=== PATIENT | male | born 1935 | race Caucasian/White ===

== ENCOUNTER 2019-11-20 06:00 | Outpatient (RCR) | payer OTHER, SELFPAY | END 2019-12-19 23:59 | disposition home or self-care (01) | LOC: TPT 06:00 | PROVIDERS: PCP Emergency Medicine Emergency Medical Services; Referring Provider Specialist; Visit Provider Specialist | DX: M54.32 Sciatica, left side (principal); M54.31 Sciatica, right side; R26.81 Unsteadiness on feet | CPT/HCPCS: 97110; 97161 ==

== ENCOUNTER → 2019-12-14 11:31 | Outpatient (BNVA) | payer OTHER, SELFPAY | PROVIDERS: Family Provider Emergency Medicine Emergency Medical Services; PCP Emergency Medicine Emergency Medical Services; Referring Provider Emergency Medicine Emergency Medical Services; Visit Provider Specialist | DX: M25.552 Pain in left hip (principal); M25.551 Pain in right hip | CPT/HCPCS: 73522; 73523 ==

== ENCOUNTER 2019-12-20 06:00 | Outpatient (RCR) | payer OTHER, SELFPAY | END 2020-01-03 23:00 | disposition home or self-care (01) | LOC: SPT 06:00 | PROVIDERS: PCP Emergency Medicine Emergency Medical Services; Referring Provider Specialist; Visit Provider Specialist | DX: M53.3 Sacrococcygeal disorders, not elsewhere classified (principal); R26.81 Unsteadiness on feet | CPT/HCPCS: 97110 ==

== ENCOUNTER → 2020-04-24 11:31 | Outpatient (BNVA) | payer OTHER, SELFPAY | PROVIDERS: PCP Emergency Medicine Emergency Medical Services; Referring Provider Emergency Medicine Emergency Medical Services; Visit Provider Podiatrist Foot & Ankle Surgery | DX: M25.571 Pain in right ankle and joints of right foot (principal); M25.572 Pain in left ankle and joints of left foot | CPT/HCPCS: 73610 ==

== ENCOUNTER 2020-05-01 06:00 | Outpatient (RCR) | payer OTHER, SELFPAY | END 2020-05-20 23:59 | disposition home or self-care (01) | LOC: TPT 06:00 | PROVIDERS: PCP Emergency Medicine Emergency Medical Services; Referring Provider Podiatrist Foot & Ankle Surgery; Visit Provider Podiatrist Foot & Ankle Surgery | DX: M67.971 Unspecified disorder of synovium and tendon, right ankle and foot (principal); M67.972 Unspecified disorder of synovium and tendon, left ankle and foot | CPT/HCPCS: 97110; 97161 ==

== ENCOUNTER 2020-05-21 06:00 | Outpatient (RCR) | payer OTHER, SELFPAY | END 2020-05-29 23:00 | disposition home or self-care (01) | LOC: TPT 06:00 | PROVIDERS: PCP Emergency Medicine Emergency Medical Services; Referring Provider Podiatrist Foot & Ankle Surgery; Visit Provider Podiatrist Foot & Ankle Surgery | DX: M76.62 Achilles tendinitis, left leg (principal); M76.61 Achilles tendinitis, right leg; G89.29 Other chronic pain | CPT/HCPCS: 97110 ==

== ENCOUNTER 2020-06-17 09:24 | Outpatient (CLI) | payer OTHER, SELFPAY ==
--- NOTE | 2020-06-17 09:31 | XR_ITS ---
WS: [id number] Exam: XR KUB [id number] Date/Time of Exam: 06/17/2020 9:31 AM Reason For Exam: RENAL STONE Comparison 05/09/2019. No sign of bowel obstruction or free air. Mild ileus. Organ margins are obscured. Postoperative lujan es in the left pelvic region. Bony structures are intact. 2 small right abdominal calcifications are noted measuring 7 mm and 4 mm respectively. These might represent renal calculi. Vascular calcificati ons also noted in the abdomen. XR/XR KUB [id number] IMPRESSION: 1. No acute abdominal finding. Mild ileus. 2. 2 small calcifications in the right abdomen which are nonspecific but could represent renal calculi.
== END 2020-06-17 09:25 | disposition home or self-care (01) ==
LOC: RAD 09:27
PROVIDERS: PCP Emergency Medicine Emergency Medical Services; Visit Provider Urology
DX: N20.0 Calculus of kidney (principal)
CPT/HCPCS: 74018; 81003

== ENCOUNTER 2021-06-17 09:19 | Outpatient (CLI) | payer OTHER, SELFPAY ==
--- NOTE | 2021-06-17 10:15 | XR_ITS ---
WS: [id number] KUB, AP view, 06/17/2021 Clinical Data: RENAL CALCULI Comparison: KUB, 06/17/2020 Findings: No abnormal intraabdominal masses are seen. There is no dilatated small bowel or evidence of obstruct ion. There are calcifications overlying the right kidney but stool and bowel gas obscure detail. There are vascular calcifications throughout the abdomen. There are surgical clips in the left inguinal region . XR/XR KUB [id number] Impression: Possible right renal calcifications.
== END 2021-06-17 09:20 | disposition home or self-care (01) ==
LOC: RAD 09:21
PROVIDERS: PCP Emergency Medicine Emergency Medical Services; Visit Provider Urology
DX: N20.0 Calculus of kidney (principal)
CPT/HCPCS: 74018; 81003

== ENCOUNTER → 2021-12-09 13:46 | Outpatient (BNVA) | payer OTHER, SELFPAY | PROVIDERS: PCP Emergency Medicine Emergency Medical Services; Visit Provider Urology | DX: N20.0 Calculus of kidney (principal); N40.1 Benign prostatic hyperplasia with lower urinary tract symptoms; R39.9 Unspecified symptoms and signs involving the genitourinary system; R39.15 Urgency of urination | CPT/HCPCS: 51798; 99213 ==

== ENCOUNTER 2022-04-22 10:17 | Outpatient (CLI) | payer OTHER, SELFPAY ==
--- NOTE | 2022-04-22 | USCV_ITS ---
Theodora Flynn Age: 87 Gender: M : 1935 Exam Date: 04/22/2022 10:42 Ordering Phys: Matthew Sung DO Technologist: MARIAM [place] [facility] [place]: LT SIDED CAROTID BRUIT Risk Factors: Previous Vascular Surgery: Right Brachial BP: / Left Brachial BP: / Right Left Velocity (cm/s) Spectral Plaque Velocity (cm/s) Spectral Plaque Syst/Diast Broadening Syst/Diast Broadening 65.30/ 10.10 Prox CCA 71.60 / 15.80 71.50/ 13.20 Mid CCA 88.10 / 21.00 51.90/ 11.20 Distal CCA 76.90 / 11.20 43.30/ 9.10 Prox ICA 102.50/ 19.80 59.80/ 11.50 Mid ICA 76.10 / 17.10 63.70/ 12.90 Distal ICA 75.40 / 16.30 116.90 ECA 121.30 0.89 ICA/CCA 1.16 Vertebral 61.40/ 12.40 cm/s 42.20/ 8.50 cm/s Subclavian 119.2 130.3 0 0 CONCLUSIONS Right ICA stenosis <50%. Moderate Calcified atheromatous plaque right carotid bulb/ICA. Left ICA stenosis <50%. Moderate calcified atheromatous plaque left carotid bulb/ICA. Normal antegrade Doppler flow noted in the right vertebral artery. Normal antegrade Doppler flow noted in the left vertebral artery. Krunal Feldman MD (Electronically Signed) Final Date: 22 April 2022 16:34 S
== END 2022-04-22 10:18 | disposition home or self-care (01) ==
LOC: RAD 10:17
PROVIDERS: PCP Emergency Medicine Emergency Medical Services; Visit Provider Emergency Medicine Emergency Medical Services
DX: R09.89 Other specified symptoms and signs involving the circulatory and respiratory systems (principal); I65.23 Occlusion and stenosis of bilateral carotid arteries
CPT/HCPCS: 93880

== ENCOUNTER → 2022-05-25 12:59 | Outpatient (BNVA) | payer OTHER, SELFPAY | PROVIDERS: PCP Emergency Medicine Emergency Medical Services; Visit Provider Internal Medicine | DX: I25.10 Atherosclerotic heart disease of native coronary artery without angina pectoris (principal); R06.02 Shortness of breath; I48.91 Unspecified atrial fibrillation; Z87.891 Personal history of nicotine dependence; Z95.1 Presence of aortocoronary bypass graft; I10 Essential (primary) hypertension | CPT/HCPCS: 93005; 99214 ==

== ENCOUNTER 2022-06-29 14:28 | Outpatient (CLI) | payer OTHER, SELFPAY ==
--- NOTE | 2022-06-29 14:30 | USCV_ITS ---
Theodora Flynn Age: 87 Gender: M : 1935 Exam Date: 06/29/2022 14:41 Ordering Phys: Jeovanny Trevino M.D ([email or web address]) Technologist: Exam Location: [facility] – [place] Indication: murmur BP: 140 / 75 HR: 43 Rhythm: Sinus Technical Quality: Adequate MEASUREMENTS (Male / Female) Normal Values 2D ECHO LV Diastolic Diameter PLAX 4.6 cm 4.2 - 5.9 / 3.9 - 5.3 cm LV Systolic Diameter PLAX 2.6 cm IVS Diastolic Thickness 1.2 cm 0.6 - 1.0 / 0.6 - 0.9 cm IVS Systolic Thickness 1.7 cm LVPW Diastolic Thickness 1.2 cm 0.6 - 1.0 / 0.6 - 0.9 cm LVPW Systolic Thickness 1.6 cm LVOT Diameter 2.0 cm LV Ejection Fraction 2D Teich 76.0 % LV Ejection Fraction MOD 2C 69.0 % LV Ejection Fraction 2C AL 70.3 % LA Diameter 6.2 cm M-MODE Aortic Annulus Diameter 2.8 cm LA Ao Ratio MM 2.5 MV E Point Septal Separation 0.8 cm DOPPLER AV Peak Velocity 237.0 cm/s LVOT Peak Velocity 71.0 cm/s AV Area Cont Eq vti 1.0 cm squared AV Area Cont Eq pk 0.9 cm squared MV Area PHT 5.0 cm squared Mitral E to A Ratio 3.2 MV E' Velocity 99.0 cm/s TR Peak Velocity 265.0 cm/s TR Peak Gradient 28.1 mmHg TV Peak E Velocity 73.0 cm/s Right Atrial Pressure 3.0 mmHg Pulmonary Artery Systolic Pressu 31.1 mmHg RV Acceleration Time 0.1 s FINDINGS Left Ventricle Left ventricle is normal in size. LV systolic function is normal with EF 55 to 60%. No regional wall abnormalities are seen. Right Ventricle Normal in size and function Right Atrium Dilated Left Atrium Severely dilated Mitral Valve Structurally normal mitral valve. Moderate mitral regurgitation. 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 Mean gradient across aortic valve is 11mmHg. DVI is 0.29 and is normal Tricuspid Valve Mild tricuspid regurgitation. RVPS is normal Pulmonic Valve Not well visualized. Mild to moderate pulmonic regurgitation Pericardium Normal Aorta Normal in size IVC Not well visualized CONCLUSIONS LV systolic function is normal with EF of 55 to 60%. 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 DVI 0.29. Normally functioning valve. Mild tricuspid regurgitation Mild to moderate pulmonic regurgitation. No comparison studies are available Jeovanny Trevino MD (Electronically Signed) Final Date: 06 July 2022 11:16 S
== END 2022-06-29 14:29 | disposition home or self-care (01) ==
LOC: RAD 14:30
PROVIDERS: PCP Emergency Medicine Emergency Medical Services; Visit Provider Internal Medicine
DX: R06.02 Shortness of breath (principal)
CPT/HCPCS: 93306

== ENCOUNTER → 2022-11-30 14:38 | Outpatient (BNVA) | payer OTHER, SELFPAY | PROVIDERS: PCP Emergency Medicine Emergency Medical Services; Visit Provider Internal Medicine | DX: I48.91 Unspecified atrial fibrillation (principal); I25.10 Atherosclerotic heart disease of native coronary artery without angina pectoris; Z87.891 Personal history of nicotine dependence; Z79.01 Long term (current) use of anticoagulants | CPT/HCPCS: 99214 ==

== ENCOUNTER → 2022-12-10 09:58 | Outpatient (BNVA) | payer OTHER, SELFPAY | PROVIDERS: PCP Emergency Medicine Emergency Medical Services; Visit Provider Urology | DX: N40.1 Benign prostatic hyperplasia with lower urinary tract symptoms (principal); R39.9 Unspecified symptoms and signs involving the genitourinary system | CPT/HCPCS: 51798; 99213 ==

== ENCOUNTER → 2023-05-31 15:13 | Outpatient (BNVA) | payer OTHER, SELFPAY | PROVIDERS: PCP Emergency Medicine Emergency Medical Services; Visit Provider Internal Medicine | DX: I48.91 Unspecified atrial fibrillation (principal); I25.10 Atherosclerotic heart disease of native coronary artery without angina pectoris; Z87.891 Personal history of nicotine dependence; I10 Essential (primary) hypertension; Z79.01 Long term (current) use of anticoagulants | CPT/HCPCS: 99214 ==

== ENCOUNTER 2023-07-26 10:35 | Outpatient (CLI) | payer OTHER, SELFPAY ==
--- NOTE | 2023-07-26 11:50 | USCV_ITS ---
Theodora Flynn Age: 88 Gender: M : 1935 Exam Date: 07/26/2023 12:19 Ordering Phys: Matthew Sung DO Technologist: Temitope Quezada Exam Location: [facility] – [place] Indication: Suggestion of AAA from xray. HISTORY: Diameter (cm) AP x Transverse x Length Velocity (cm/s) Waveform Prox Aorta: 2.23 x 2.66 x 62.50 Mid Aorta: 1.58 x 1.74 x 105.30 Distal Aorta: 1.40 x 1.40 x 133.10 Right Iliac Prox: 1.31 x 1.14 x 170.50 Left Iliac Prox: 1.10 x 1.37 x 170.50 Stent Prox Landing x x Aneurysmal Sac Max x x Lt Lat Sac Dim Rt Lat Sac Dim Stent Dist Landing x x Right Iliac Stent x x Left Iliac Stent x x Right Renal Art Left Renal Art FINDINGS: Comparison: none available. 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 No evidence of abdominal aortic aneurysm. There is evidence of atherosclerotic plaque no significan stenosis in the right common iliac artery. There is evidence of atherosclerotic plaque no significan stenosis in the left common iliac artery. CONCLUSIONS No evidence of abdominal aortic or bilateral iliac aneurysm. 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 Dr. Michelle Patton DO (Electronically Signed) Final Date: 27 July 2023 07:32 S
== END 2023-07-26 10:36 | disposition home or self-care (01) ==
PROVIDERS: PCP Emergency Medicine Emergency Medical Services; Visit Provider Emergency Medicine Emergency Medical Services
DX: R93.5 Abnormal findings on diagnostic imaging of other abdominal regions, including retroperitoneum (principal); I70.0 Atherosclerosis of aorta; I77.811 Abdominal aortic ectasia
CPT/HCPCS: 93978

== ENCOUNTER 2023-08-12 10:29 | Outpatient (CLI) | payer OTHER, SELFPAY ==
--- NOTE | 2023-08-12 10:40 | MR_ITS ---
WS: [id number] MRI LUMBAR SPINE NONCONTRAST HISTORY: LOW BACK PAIN WORSENING COMPARISON: None available. TECHNIQUE: Sagittal and axial multisequence imaging is submitted. 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 Os teophyte contact on the ventral cervical cord at C3 and C4. Component of cervical stenosis at several levels. Mild straightening of the normal cervical lordosis. 2 mm retrolisthesis of L3. No fractures are ident ified. Patient had a very difficult time remaining still for this examination due to extensive back p ain. Some of the sequences are limited. Disc spaces are moderately narrowed and desiccated. Conus terminates normally at L1-2 disc level. L1-L2: Small central disc protrusion and mild annular disc bulging. Mild bilateral foraminal stenosis . L2-L3: Diffuse annular disc bulging. Marked ligamentum flavum and facet arthritis. LEFT foraminal dis c protrusion. There is disc and facet disease causing mild central with bilateral subarticular recess and foraminal stenosis. Slightly greater contact along the LEFT lateral thecal sac which is probably in contact with the traversing LEFT L3 nerve root. L3-L4: Diffuse annular disc bulging with marked ligamentum flavum hypertrophy. Fluid in the facet aftab nts and mild facet joint widening. Severe facet arthritis. Severe RIGHT and moderate LEFT foraminal s tenosis and mild central stenosis. L4-L5: Diffuse annular disc bulging with ligamentum flavum and facet arthritis. Fluid in the facet lyudmila ints. Moderate to severe bilateral foraminal stenosis. L5-S1: Marked facet arthritis with annular disc bulging. There is slight disc contact on the S1 nerve roots. Additional moderate bilateral foraminal stenosis, RIGHT greater than LEFT. Numerous bilateral renal cysts. IMPRESSION: 1. Quality and specificity of this lumbar spine MRI is significantly limited by motion artifact. Pat ient had to move several times during the examination. 2. No acute fractures are identified. 3. L3-4: Severe RIGHT and moderate LEFT foraminal stenosis and mild central stenosis. Severe facet j oint arthritis. 4. L4-5: Fluid in the facet joints bilaterally. Moderate to severe bilateral foraminal stenosis. 5. L5-S1: Diffuse disc bulging with moderate bilateral foraminal stenosis, RIGHT greater than LEFT. Mild disc contact on the L5 and S1 nerve roots. 6. L2-3: Small LEFT foraminal disc protrusion contacts the traversing LEFT L3 nerve root. Otherwise mild central, bilateral subarticular recess and foraminal stenosis. 7. L1-2: Mild bilateral foraminal stenosis with a small central disc protrusion.
== END 2023-08-12 10:30 | disposition home or self-care (01) ==
LOC: RAD 10:30
PROVIDERS: PCP Emergency Medicine Emergency Medical Services; Visit Provider Emergency Medicine Emergency Medical Services
DX: M54.50 Low back pain, unspecified (principal)
CPT/HCPCS: 72148

== ENCOUNTER → 2023-09-02 10:31 | Outpatient (BNVA) | payer OTHER, SELFPAY | PROVIDERS: PCP Emergency Medicine Emergency Medical Services; Referring Provider Emergency Medicine Emergency Medical Services; Visit Provider Orthopaedic Surgery | DX: M54.9 Dorsalgia, unspecified (principal); M54.50 Low back pain, unspecified; G89.29 Other chronic pain | CPT/HCPCS: 72100; 99204 ==

== ENCOUNTER → 2023-09-23 09:25 | Outpatient (BNVA) | payer OTHER, SELFPAY | PROVIDERS: PCP Emergency Medicine Emergency Medical Services; Visit Provider Anesthesiology Pain Medicine | DX: M79.604 Pain in right leg; M79.605 Pain in left leg; M51.16 Intervertebral disc disorders with radiculopathy, lumbar region | CPT/HCPCS: 99204 ==

== ENCOUNTER → 2023-11-23 09:25 | Outpatient (BNVA) | payer OTHER, SELFPAY | PROVIDERS: PCP Emergency Medicine Emergency Medical Services; Visit Provider Anesthesiology Pain Medicine | DX: M79.604 Pain in right leg; M79.605 Pain in left leg; M51.16 Intervertebral disc disorders with radiculopathy, lumbar region | CPT/HCPCS: 99214 ==

== ENCOUNTER → 2023-12-24 10:06 | Outpatient (BNVA) | payer OTHER, SELFPAY | PROVIDERS: PCP Emergency Medicine Emergency Medical Services; Visit Provider Nurse Practitioner Family | DX: I25.10 Atherosclerotic heart disease of native coronary artery without angina pectoris (principal); I48.21 Permanent atrial fibrillation; I10 Essential (primary) hypertension; Z95.3 Presence of xenogenic heart valve; Z87.891 Personal history of nicotine dependence; Z79.01 Long term (current) use of anticoagulants | CPT/HCPCS: 99214 ==

== ENCOUNTER → 2024-05-05 09:49 | Outpatient (BNVA) | payer OTHER, SELFPAY | PROVIDERS: PCP Emergency Medicine Emergency Medical Services; Visit Provider Nurse Practitioner Family | DX: I25.10 Atherosclerotic heart disease of native coronary artery without angina pectoris (principal); I10 Essential (primary) hypertension; Z95.3 Presence of xenogenic heart valve; I48.21 Permanent atrial fibrillation; Z87.891 Personal history of nicotine dependence | CPT/HCPCS: 93005; 99214 ==

== ENCOUNTER → 2024-06-27 12:41 | Outpatient (BNVA) | payer OTHER, SELFPAY | PROVIDERS: PCP Emergency Medicine Emergency Medical Services; Visit Provider Internal Medicine | DX: I48.91 Unspecified atrial fibrillation (principal); I25.10 Atherosclerotic heart disease of native coronary artery without angina pectoris; Z87.891 Personal history of nicotine dependence; Z79.01 Long term (current) use of anticoagulants | CPT/HCPCS: 99214 ==

== ENCOUNTER 2024-08-04 08:37 | Outpatient (CLI) | payer OTHER, SELFPAY ==
--- NOTE | 2024-08-04 09:24 | USCV_ITS ---
Flynn Theodora Age: 89 Gender: M : 1935 Exam Date: 08/04/2024 09:28 Ordering Phys: Jessie Mcmillan Technologist: R Exam Location: [facility] [place] Indication: ecatitic aorta HISTORY: Diameter (cm) AP x Transverse x Length Velocity (cm/s) Waveform Prox Aorta: 2.02 x 1.85 x 88.30 Triphasic Mid Aorta: 1.58 x 1.89 x 99.40 Triphasic Distal Aorta: 1.53 x 1.69 x 91.60 Triphasic Right Iliac Prox: 1.03 x 1.01 x 193.90 Triphasic Left Iliac Prox: 0.90 x 1.05 x 154.10 Triphasic Stent Prox Landing x x Aneurysmal Sac Max x x Lt Lat Sac Dim Rt Lat Sac Dim Stent Dist Landing x x Right Iliac Stent x x Left Iliac Stent x x Right Renal Art Left Renal Art FINDINGS: CONCLUSIONS No evidence of abdominal aortic or bilateral iliac aneurysm. Mild atheromatous disease Krunal Feldman MD (Electronically Signed) Final Date: 04 August 2024 11:56 S
== END 2024-08-04 08:38 | disposition home or self-care (01) ==
LOC: RAD 08:37
PROVIDERS: PCP Emergency Medicine Emergency Medical Services; Visit Provider Nurse Practitioner
DX: Z01.89 Encounter for other specified special examinations (principal); R93.89 Abnormal findings on diagnostic imaging of other specified body structures
CPT/HCPCS: 76706